=== PATIENT | female | born 2000 | race Caucasian/White ===

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

== ENCOUNTER 2021-01-10 01:43 | Day surgery (SDC) | payer OTHER | END 2021-01-10 23:06 | disposition home or self-care (01) | LOC: WOUND 01:43 | DX: T23.151A Burn of first degree of right palm, initial encounter (principal); X08.8XXA Exposure to other specified smoke, fire and flames, initial encounter | CPT/HCPCS: G0463 ==

== ENCOUNTER → 2022-10-21 | Outpatient (CLI) | payer OTHER | END | disposition home or self-care (01) | LOC: LAB 14:40 → LAB SHORT 14:40 | PROVIDERS: Family Medicine | DX: Z01.419 Encounter for gynecological examination (general) (routine) without abnormal findings (principal) | CPT/HCPCS: G0145 ==

== ENCOUNTER → 2023-01-28 | Outpatient (CLI) | payer OTHER ==
[2023-01-28 19:34] LABS: Bun/Creatinine Ratio 6.2 (12.0-20.0); Calcium, Blood 8.9 mg/dL (8.5-10.1); Creatinine, Blood 0.97 mg/dL (0.40-1.00); Potassium, Blood 3.7 mmol/L (3.5-5.5)
== END ==
LOC: LAB 14:32 → LAB SHORT 14:32
PROVIDERS: Family Medicine
DX: E16.2 Hypoglycemia, unspecified (principal)
CPT/HCPCS: 80048; 83525; 84681

== ENCOUNTER → 2024-06-17 | Outpatient (CLI) | payer OTHER | LOC: LAB 16:47 → LAB SHORT 16:47 | DX: E55.9 Vitamin D deficiency, unspecified (principal) | CPT/HCPCS: 82306 ==